=== PATIENT | male | born 1955 | race Caucasian/White ===

== ENCOUNTER 2019-04-17 05:12 | Day surgery (SDC) | payer MEDICAID ==
[~2019-04-17] VITALS: Ht 170.2 cm; Wt 122.5 kg
[~2019-04-17 05:12] MED LIST: AMIT25TA9 PO; ASPI-1393 PO; ATOR40TA70 PO; CYCL10TA7 PO; GABA-531 PO; GLIP5TAB12 PO; LISI10TA5 PO; METF-416 PO; MONT10TA21 PO; OMEP20TA2 PO; RANI150T7 PO; TERA5CAP4 PO
[2019-04-17] MEDS ORDERED: SODIUM CHLORIDE 0.9% 1,000 ML IV SCH (06:30)
[2019-04-17] MEDS ORDERED: HYALURONATE SODIUM 14 MG/ML 0.85ML SYRINGE IO ONE (06:34)
[2019-04-17] MEDS ORDERED: BALANCED SALT IRRIG SOLN 15ML ONE (07:00)
[2019-04-17] MEDS ORDERED: CIPROFLOXACIN 0.3% OPHTH SOLN 2.5ML ONE (07:00)
[2019-04-17] MEDS ORDERED: LIDOCAINE HCL/PF 2% 20 MG/ML 10ML VIAL ONE (07:00)
[2019-04-17] MEDS ORDERED: PREDNISOLONE ACETATE 1% OPHTH DROPS 5ML ONE (07:00)
[2019-04-17] MEDS ORDERED: TETRACAINE 0.5% OPHTH DROPS 4ML ONE (07:00)
[2019-04-17] MEDS ORDERED: BALANCED SALT IRRIG SOLN COMB1 500ML OP SCH (07:30)
[2019-04-17] MEDS ORDERED: ERYTHROMYCIN BASE 0.5% OPHTH OINT UD ONE (07:36)
[2019-04-17] MEDS ORDERED: MIDAZOLAM HCL 2 MG/2 ML VIAL ONE (08:55)
[2019-04-17] MEDS ORDERED: CYCLOPENTOLATE HCL 1% OPHTH DROPS 2ML RIGHTEYE ONE (09:00)
[2019-04-17] MEDS ORDERED: TROPICAMIDE 1% OPHTH DROPS 15ML RIGHTEYE ONE (09:00)
[2019-04-17] MEDS ORDERED: PHENYLEPHRINE HCL 10% OPHTH DROPS 5ML RIGHTEYE ONE (09:00)
== END 2019-04-17 10:40 | disposition home or self-care (01) ==
LOC: OR 05:12
PROVIDERS: ATTEND Ophthalmology
DX: E11.36 Type 2 diabetes mellitus with diabetic cataract (principal); E11.59 Type 2 diabetes mellitus with other circulatory complications; H25.89 Other age-related cataract; I10 Essential (primary) hypertension; E78.00 Pure hypercholesterolemia, unspecified; K21.9 Gastro-esophageal reflux disease without esophagitis; N40.0 Benign prostatic hyperplasia without lower urinary tract symptoms; F41.9 Anxiety disorder, unspecified; G47.33 Obstructive sleep apnea (adult) (pediatric); E66.01 Morbid (severe) obesity due to excess calories; Z98.890 Other specified postprocedural states; Z79.84 Long term (current) use of oral hypoglycemic drugs; Z79.899 Other long term (current) drug therapy; Z79.82 Long term (current) use of aspirin; Z82.49 Family history of ischemic heart disease and other diseases of the circulatory system; Z83.3 Family history of diabetes mellitus; Z68.41 Body mass index [BMI] 40.0-44.9, adult
CPT/HCPCS: 66984; 82962; J2250; J3490; V2632

== ENCOUNTER 2019-05-15 11:00 | Day surgery (SDC) | payer MEDICAID ==
[~2019-05-15] VITALS: Ht 170.2 cm; Wt 122.5 kg
[~2019-05-15 11:00] MED LIST changes: +ACETAMINOPHEN 500MG TABLET PO PRN; -ASPI-1393 PO; +ASPI-1497 PO; +BALANCED SALT IRRIG SOLN 15ML ONE; +CIPROFLOXACIN 0.3% OPHTH SOLN 2.5ML ONE; +CYCLOPENTOLATE HCL 1% OPHTH DROPS 2ML LEFTEYE SCH; +LIDOCAINE HCL/PF 2% 20 MG/ML 10ML VIAL ONE; +ONDANSETRON HCL 4MG/2ML INJ IV PRN; +PHENYLEPHRINE HCL 10% OPHTH DROPS 5ML LEFTEYE SCH; +PREDNISOLONE ACETATE 1% OPHTH DROPS 5ML ONE; +SODIUM CHLORIDE 0.9% 1,000 ML IV SCH; +TETRACAINE 0.5% OPHTH DROPS 4ML ONE; +TROPICAMIDE 1% OPHTH DROPS 15ML LEFTEYE SCH
== END 2019-05-15 16:00 | disposition home or self-care (01) ==
LOC: OR 11:00
PROVIDERS: ATTEND Ophthalmology
DX: E11.36 Type 2 diabetes mellitus with diabetic cataract (principal); H25.89 Other age-related cataract; E11.59 Type 2 diabetes mellitus with other circulatory complications; I10 Essential (primary) hypertension; E78.00 Pure hypercholesterolemia, unspecified; M19.90 Unspecified osteoarthritis, unspecified site; N40.0 Benign prostatic hyperplasia without lower urinary tract symptoms; G47.33 Obstructive sleep apnea (adult) (pediatric); E66.01 Morbid (severe) obesity due to excess calories; F41.9 Anxiety disorder, unspecified; Z98.890 Other specified postprocedural states; Z79.82 Long term (current) use of aspirin; Z79.899 Other long term (current) drug therapy; Z79.84 Long term (current) use of oral hypoglycemic drugs; Z68.41 Body mass index [BMI] 40.0-44.9, adult
CPT/HCPCS: 66984; 82962; J3490; V2632